=== PATIENT | female | born 1955 | race Caucasian/White ===

== ENCOUNTER → 2017-03-24 | Outpatient (CLI) | payer BC ==
[~2017-03-24] MED LIST: KEFLEX 500MG.500 MG PO; VICODIN 5/500 T1 TAB PO; ZYRTEC10 M3 PO
--- NOTE | 2017-03-24 14:37 | RADIOLOGY REPORT PS360 ---
ELBOW-LT-3 VIEWS HISTORY: LEFT ELBOW PAIN ORDERING PHYSICIAN: Lisa Redd APRN PATIENT AGE: 62 years COMPARISON: None FINDINGS: There is a faint transverse lucency at the neck of the radius with questionable minimal cortical irregularity along the lateral aspect of the neck of the radius. This could represent a nondisplaced fracture in the appropriate clinical setting. Has there been recent trauma?. No other significant anomalies are evident. IMPRESSION: Possible nondisplaced fracture of the neck of the radius. Please correlate clinically. CT may confirm. Otherwise negative
== END ==
LOC: RAD 11:17
DX: M25.522 Pain in left elbow (principal)

== ENCOUNTER → 2017-04-09 | Outpatient (CLI) | payer BC ==
--- NOTE | 2017-04-12 16:11 | RADIOLOGY REPORT PS360 ---
DIG MAMM-SCREEN JOSE W/CAD CAD Screening COMPARISON: Digital mammograms 02/28/2015 and 06/02/2011 INDICATION: There is no personal or family history of breast cancer. TECHNIQUE: Standard CC and MLO images were obtained. R2 CAD reviewed. FINDINGS: Moderate fiber glandular densities are seen in the subareolar regions and central portions of both breast. There is faint arterial calcification in each breast. There is no suspicious lesion and there are no suspicious microcalcifications. IMPRESSION: Moderately dense parenchymal pattern with no suspicious lesion seen recommend yearly follow-up BI-RADS CATEGORY: 2_Benign RECOMMENDED FOLLOWUP: 12M 12 MONTH FOLLOW-UP (A letter has been sent to the patient regarding results of the study.)
== END ==
LOC: RAD 08:41
DX: Z12.31 Encounter for screening mammogram for malignant neoplasm of breast (principal)
CPT/HCPCS: G0202

== ENCOUNTER → 2017-04-29 | Outpatient (CLI) | payer BC ==
--- NOTE | 2017-04-29 09:56 | RADIOLOGY REPORT PS360 ---
ELBOW-LT-3 VIEWS HISTORY: Follow-up fracture HEALING OF LEFT ELBOW FX ORDERING PHYSICIAN: DYLON MAS MD PATIENT AGE: 62 years COMPARISON: 03/24/2017 FINDINGS: Slight increased sclerosis noted at the radial neck consistent with healing fracture. Otherwise negative. IMPRESSION: Healing impaction fracture of the radial neck with good alignment
== END ==
LOC: RAD 08:58
DX: S52.132D Displaced fracture of neck of left radius, subsequent encounter for closed fracture with routine healing (principal)